=== PATIENT | female | born 1980 | race Caucasian/White ===

== ENCOUNTER 2021-02-28 12:25 | Emergency (ER) | payer OTHER ==
[~2021-02-28] VITALS: Ht 162.6 cm; Wt 117.1 kg
--- NOTE | 2021-02-28 12:43 | NUR ---
PT BROUGHT BACK FROM TRIAGE WITH CHIEF COMPLAINT OF LEFT NECK/SHOULDER PAIN, WITH NUMBNESS AND TINGING IN FINGER. SEEN AT YESTERDAY.
[2021-02-28] MEDS ORDERED: KETOROLAC 30 MG/1 ML ONE (13:21)
[2021-02-28] MEDS ORDERED: DIAZEPAM 5 MG TABLET ONE (13:21)
--- NOTE | 2021-02-28 13:29 | NUR ---
PT RESTING IN BED, MEDICATED ORDERED.
[2021-02-28] MEDS ORDERED: DIAZEPAM 5 MG TABLET PO ONE (13:30)
[2021-02-28] MEDS ORDERED: KETOROLAC 30 MG/1 ML IM ONE (13:30)
--- NOTE | 2021-02-28 13:45 | NUR ---
ERMD AT BEDSIDE FOR EVAL.
[2021-02-28] MEDS ORDERED: MORPHINE SULFATE 4 MG/ML, 1ML ONE ×2 (15:00→19:02)
[2021-02-28] MEDS ORDERED: SODIUM CHLORIDE 0.9% 1,000ML IVBOLUS ONE (15:00)
[2021-02-28] MEDS ORDERED: ONDANSETRON 2MG/ML, 2ML IVPush ONE (15:00)
[2021-02-28] MEDS ORDERED: ONDANSETRON 2MG/ML, 2ML ONE (15:00)
--- NOTE | 2021-02-28 15:00 | NUR ---
PT RESTING IN BED, MEDICATED ORDERED.
[2021-02-28] MEDS: MORPHINE SULFATE 4 MG/ML, 1ML IVPush PRN ×2 (15:02→19:03)
--- NOTE | 2021-02-28 16:38 | NUR ---
VIRGIE ASHTON AT BEDSIDE TO DISCUSS POC
--- NOTE | 2021-02-28 17:33 | NUR ---
PT TO MRI
--- NOTE | 2021-02-28 18:16 | NUR ---
PT BACK FROM MRI, STEADY AMBULATION TO BATHROOM, BACK RESTING IN BED, CALL LIGHT IN REACH.
--- NOTE | 2021-02-28 18:48 | NUR ---
report to Lexie SANTANA
--- NOTE | 2021-02-28 18:49 | NUR ---
RECEIVED REPORT FROM MAX VILLASEÑOR. ASSUMED PT CARE.
--- NOTE | 2021-02-28 19:05 | NUR ---
NABEEL ASHTON AT BEDSIDE FOR EVAL.
[2021-02-28 19:23] VITALS: BP 105/57
== END 2021-02-28 20:08 | disposition home or self-care (01) ==
LOC: ED 20:06
DX: S16.1XXA Strain of muscle, fascia and tendon at neck level, initial encounter (principal); M47.812 Spondylosis without myelopathy or radiculopathy, cervical region; M48.02 Spinal stenosis, cervical region; X58.XXXA Exposure to other specified factors, initial encounter; Y93.89 Activity, other specified; Y92.89 Other specified places as the place of occurrence of the external cause; Y99.8 Other external cause status
CPT/HCPCS: 72141; 96361; 96372; 96374; 96375; 96376; 99285; J1885; J2270; J2405; J7030